=== PATIENT | male | born 1980 | race Caucasian/White ===

== ENCOUNTER 2022-10-22 16:47 | Emergency (ER) | payer BC ==
[~2022-10-22] VITALS: Ht 175.3 cm; Wt 99.5 kg
[2022-10-22 17:59] LABS: CLARITY,URINE CLEAR (Clear); COLOR,URINE YELLOW (Yellow); GLUCOSE, URINE NEGATIVE (Neg); KETONES,URINE TRACE mg/dl (Neg); LEUKOCYTE ESTERASE ,URINE NEGATIVE (Neg); NITRITES, URINE NEGATIVE (Neg); OCCULT BLOOD,URINE NEGATIVE (Neg); PH,URINE 6.5 (4.8-8.0); PROTEIN,URINE NEGATIVE (Neg); UROBILINOGEN,URINE 0.2 E.U/dL (0.2-1.0)
[2022-10-22 18:00] VITALS: BP 140/95
[2022-10-22 18:00] LABS: UA COLLECTION TYPE CLN CATCH MIDSTREAM
[2022-10-22] MEDS ORDERED: ketorolac trometh. 30mg/ml inj. IM ONE (18:00)
[2022-10-22] MEDS ORDERED: oxyCODONE/APAP 10/325mg tablet PO ONE (19:30)
== END 2022-10-22 20:09 | disposition home or self-care (01) ==
LOC: ER 16:47
DX: M54.50 Low back pain, unspecified (principal); F41.9 Anxiety disorder, unspecified; F32.9 Major depressive disorder, single episode, unspecified; Z72.89 Other problems related to lifestyle
CPT/HCPCS: 74176; 81003; 96372; 99285; J1885

== ENCOUNTER 2023-04-21 14:22 | Outpatient (CLI) | payer BC ==
[2023-04-21 15:14] LABS: BASOPHILS # (AUTO) 0.1 X10'3 (0-0.2); BASOPHILS % (AUTO) 0.8 % (0-1); EOSINOPHILS # (AUTO) 0.3 X10'3 (0-0.9); EOSINOPHILS % (AUTO) 3.4 % (0-6); HEMOGLOBIN 16.9 g/dl (14.0-17.9); LYMPHOCYTES # (AUTO) 2.2 X10'3 (1.1-4.8); LYMPHOCYTES % (AUTO) 29.1 % (21-51); MEAN CORPUSCULAR HEMOGLOBIN 29.7 PG (27.0-31.0); MEAN CORPUSCULAR HGB CONC 33.7 g/dL (33.0-36.5); MEAN PLATELET VOLUME 8.3 FL (7.4-10.4); MONOCYTES # (AUTO) 0.7 X10'3 (0-0.9); MONOCYTES % (AUTO) 8.7 % (2-12); NEUTROPHILS # (AUTO) 4.4 X10'3 (1.8-7.7); PLATELET COUNT 270 X10'3 (140-440); RED BLOOD COUNT 5.68 X10'6 (4.70-6.10); RED CELL DISTRIBUTION WIDTH 15.6 % (11.5-14.5); WHITE BLOOD COUNT 7.5 X10'3 (4.5-11.0)
[2023-04-21 15:23] LABS: ALANINE AMINOTRANSFERASE 123 U/L (12-78); ALBUMIN 3.7 G/DL (3.4-5.0); ALKALINE PHOSPHATASE 55 IU/L (46-116); ANION GAP 8 (8-16); ASPARTATE AMINO TRANSFERASE 57 U/L (10-37); BILIRUBIN,TOTAL 0.3 MG/DL (0.1-1.0); BLOOD UREA NITROGEN 19 MG/DL (7-18); BUN/CREATININE RATIO 15.7 (10.0-20.0); CALCIUM 8.9 MG/DL (8.5-10.1); CHLORIDE 102 MMOL/L (99-107); CHOLESTEROL 199 MG/DL (0-200); CREATININE 1.21 MG/DL (0.60-1.10); GLUCOSE 94 MG/DL (70-104); HDL CHOLESTEROL 25 MG/DL (35-60); LDL CHOLESTEROL 148 MG/DL (50-100); POTASSIUM 4.2 MMOL/L (3.5-5.1); SODIUM 137 MMOL/L (135-145); TOTAL CARBON DIOXIDE 27.2 MMOL/L (24-32); TOTAL PROTEIN 7.5 G/DL (6.4-8.2); TRIGLYCERIDES 124 MG/DL (20-135); eGFR 66 ML/MIN
== END 2023-04-21 23:59 | disposition home or self-care (01) ==
LOC: LAB 14:22
PROVIDERS: ATTEND Physician Assistant
DX: R53.83 Other fatigue (principal); Z79.890 Hormone replacement therapy
CPT/HCPCS: 36415; 80053; 80061; 84402; 84403; 85025

== ENCOUNTER 2023-04-24 08:47 | Outpatient (CLI) | payer BC | END 2023-04-24 23:59 | disposition home or self-care (01) | LOC: RAD 08:47 | PROVIDERS: ATTEND Physician Assistant | DX: M25.812 Other specified joint disorders, left shoulder (principal); M62.89 Other specified disorders of muscle; M25.512 Pain in left shoulder; G89.29 Other chronic pain | CPT/HCPCS: 73221 ==

== ENCOUNTER 2023-10-30 08:53 | Day surgery (SDC) | payer BC ==
[2023-10-24 15:43] LABS: BASOPHILS % (AUTO) 0.4 % (0-1); EOSINOPHILS # (AUTO) 0.2 X10'3 (0-0.9); LYMPHOCYTES # (AUTO) 1.9 X10'3 (1.1-4.8); MEAN CORPUSCULAR HGB CONC 33.5 g/dL (33.0-36.5); MONOCYTES # (AUTO) 0.8 X10'3 (0-0.9)
[2023-10-24 15:45] LABS: EOSINOPHILS % (AUTO) 1.9 % (0-6); LYMPHOCYTES % (AUTO) 21.4 % (21-51); MEAN CORPUSCULAR HEMOGLOBIN 30.7 PG (27.0-31.0); MEAN CORPUSCULAR VOLUME 91.8 FL (78-98); MEAN PLATELET VOLUME 8.5 FL (7.4-10.4); MONOCYTES % (AUTO) 9.1 % (2-12); NEUTROPHILS # (AUTO) 6.1 X10'3 (1.8-7.7); NEUTROPHILS % (AUTO) 67.2 % (42-75); PRE OP HEMATOCRIT 55.9 % (42.0-52.0); PRE OP PLATELET COUNT 245 X10'3 (140-440); PRE OP WHITE BLOOD COUNT 9.1 10'3 (4.8-10.8); RED BLOOD COUNT 6.09 X10'6 (4.70-6.10); RED CELL DISTRIBUTION WIDTH 15.5 % (11.5-14.5)
[2023-10-24 15:47] LABS: PRE OP HEMOGLOBIN 18.7 g/dL (14.0-17.9)
[2023-10-24 16:27] LABS: CHLORIDE 103 MMOL/L (99-107); PRE OP ANION GAP 5 (8-16); PRE OP POTASSIUM 3.8 MMOL/L (3.4-5.1); PRE OP SODIUM 139 MMOL/L (135-145); TOTAL CARBON DIOXIDE 30.8 MMOL/L (24-32)
[2023-10-24 17:02] LABS: ALKALINE PHOSPHATASE 53 IU/L (46-116); BLOOD UREA NITROGEN 19 MG/DL (7-18); BUN/CREATININE RATIO 16.5 (10.0-20.0); CREATININE 1.15 MG/DL (0.60-1.10); PRE OP ALT 57 U/L (30-65); PRE OP AST 39 U/L (10-37); PRE OP BILIRUB, TOTAL 0.5 MG/DL (0.0-1.0); PRE OP GLUCOSE 81 MG/DL (70-104); eGFR 70 ML/MIN
[~2023-10-30] VITALS: Ht 175.3 cm; Wt 98.9 kg
[2023-10-30] VITALS (11 sets, daily range): BP systolic 132–169; BP diastolic 42–96; PULSE 76–88; RESP 12–19; TEMP 98.2; O2SAT 90–97
[2023-10-30] MEDS: cefazolin 2gm/D5W 100mL 100 ML IV ONE (05:30)
[~2023-10-30 08:53] MED LIST: ALPR0.5T8 PO; ESCI20TA39 PO; TEST200V33 IM
[2023-10-30] MEDS: famotidine 20mg tablet PO ONE (09:27)
[2023-10-30] MEDS: ringers solution, lacted 1,000 ML IV SCH (09:27)
[2023-10-30] MEDS ORDERED: BUPIVAcaine 0.5% inj/PF 30 ML ONE (09:38)
[2023-10-30] MEDS ORDERED: triamcinolone acetonide 40mg/ml inj ONE (09:38)
[2023-10-30] MEDS ORDERED: LIDOcaine 1% w/EPI 1:100,000 inj. MDV 50 ML VIAL ONE (09:38)
[2023-10-30] MEDS ORDERED: epiNEPHrine 1 mg/ml 30ml MDV ONE (09:38)
[2023-10-30] MEDS ORDERED: fentaNYL/PF 50MCG/1 ML 2ML syringe ONE ×2 (09:49→11:36)
[2023-10-30] MEDS ORDERED: LIDOcaine 2% (20mg/ml) 5ml vial ONE (09:49)
[2023-10-30] MEDS ORDERED: midazolam 1 mg/ML 2ml injection ONE (09:49)
[2023-10-30] MEDS ORDERED: propofol inj 20 ML IV ONE (09:49)
[2023-10-30] MEDS ORDERED: dexamethasone sod phosphate 10mg/ml inj ONE (09:58)
[2023-10-30] MEDS ORDERED: sevoflurane 250ml liquid IH ONE (09:58)
[2023-10-30] MEDS ORDERED: ROPIVAcaine 0.5% (5mg/ml) 30ml vial ONE (10:14)
[2023-10-30] MEDS ORDERED: acetaminophen 1,000mg/100ml IV 100 ML IV ONE (10:24)
[2023-10-30] MEDS: LIDOcaine 1.5% w/epinephrine 1:200,000 5ml ampul IJ ONE (10:40)
[2023-10-30] MEDS: epiNEPHrine 1 mg/ml inj IR ONE (10:40)
[2023-10-30] MEDS ORDERED: ondansetron/PF 4mg/2ml inj ONE (10:41)
[2023-10-30] MEDS ORDERED: morphine 4 MG/ML inj SYRINge IV PRN (10:55)
[2023-10-30] MEDS ORDERED: morphine 2 MG/ML inj. syringe IV PRN (10:55)
[2023-10-30] MEDS ORDERED: hydrALAZINE 20mg/ml inj. IV PRN (10:55)
[2023-10-30] MEDS ORDERED: ringers solution, lacted 1,000 ML IV SCH (10:55)
[2023-10-30] MEDS ORDERED: fentaNYL/PF 50MCG/1 ML 2ML syringe IV PRN ×2 (10:55)
[2023-10-30] MEDS ORDERED: enalaprilat dihydrate 2.5mg/2ml vial IV PRN (10:55)
[2023-10-30] MEDS ORDERED: ondansetron/PF 4mg/2ml inj IV PRN (10:55)
[2023-10-30] MEDS: triamcinolone acetonide 40mg/ml inj IJ ONE (11:25)
[2023-10-30] MEDS: ROPIVAcaine 0.5% (5mg/ml) 30ml vial IJ ONE (11:25)
[2023-10-30 12:53] LABS: ABG BASE EXCESS -1.4 mmol/L (-2.0-2.0); ABG HCO3 24.1 mmol/L (22.0-26.0); ABG OXYGEN SATURATION 90.2 % (94-97); ABG PCO2 (T) 41.7 mmHg (35.0-48.0); ABG PH (T) 7.374 (7.340-7.440); ALLEN'S TEST POSITIVE; FCOHb 0.7 % (0.0-3.9); FHHb 9.7 % (0.0-5.0); FLOW 6 L/min; FMetHb 0.3 % (0.0-1.5); FO2Hb 89.3 % (94-97); MODE MASK - SIMPLE; TOTAL HEMOGLOBIN 12.3 G/dl (14.0-17.9)
[2023-10-30] MEDS: ondansetron 4mg rapidly disintigrating tab PO ONE (13:50)
== END 2023-10-30 13:55 | disposition home or self-care (01) ==
LOC: PAS 08:53
PROVIDERS: ATTEND Orthopaedic Surgery
DX: S43.432A Superior glenoid labrum lesion of left shoulder, initial encounter (principal); M75.42 Impingement syndrome of left shoulder; M19.012 Primary osteoarthritis, left shoulder; M75.112 Incomplete rotator cuff tear or rupture of left shoulder, not specified as traumatic; M75.32 Calcific tendinitis of left shoulder; M94.212 Chondromalacia, left shoulder; I10 Essential (primary) hypertension; E66.9 Obesity, unspecified; F41.9 Anxiety disorder, unspecified; F32.A Depression, unspecified; G47.33 Obstructive sleep apnea (adult) (pediatric); Z79.890 Hormone replacement therapy; Z79.899 Other long term (current) drug therapy; Z68.32 Body mass index [BMI] 32.0-32.9, adult; X58.XXXA Exposure to other specified factors, initial encounter; Y93.89 Activity, other specified; Y92.89 Other specified places as the place of occurrence of the external cause; Y99.8 Other external cause status
CPT/HCPCS: 29823; 29824; 29826; 36415; 36600; 64450; 80053; 82803; 82948; 85018; 85025; 93005; J0131; J0171; J0690; J1100; J2250; J2405; J2704; J2795; J3010; J3301; J3490; J7030; J7120; S0020; Z7506; Z7508; Z7512; A4215; A4565; A4618; A6253; A6449

== ENCOUNTER 2023-12-11 11:04 | Outpatient (CLI) | payer BC ==
[2023-12-11 11:53] LABS: BILIRUBIN,URINE NEGATIVE (Neg); CLARITY,URINE CLEAR (Clear); COLOR,URINE YELLOW (Yellow); GLUCOSE, URINE NEGATIVE (Neg); KETONES,URINE NEGATIVE (Neg); LEUKOCYTE ESTERASE ,URINE NEGATIVE (Neg); NITRITES, URINE NEGATIVE (Neg); OCCULT BLOOD,URINE NEGATIVE (Neg); PROTEIN,URINE NEGATIVE (Neg); UROBILINOGEN,URINE 0.2 E.U/dL (0.2-1.0)
[2023-12-11 11:56] LABS: UA COLLECTION TYPE NON-SPECIFIED
[2023-12-11 11:57] LABS: BASOPHILS % (AUTO) 0.6 % (0-1); EOSINOPHILS # (AUTO) 0.1 X10'3 (0-0.9); EOSINOPHILS % (AUTO) 1.4 % (0-6); HEMATOCRIT 53.8 % (42.0-52.0); LYMPHOCYTES # (AUTO) 1.7 X10'3 (1.1-4.8); LYMPHOCYTES % (AUTO) 24.1 % (21-51); MEAN CORPUSCULAR HGB CONC 33.9 g/dL (33.0-36.5); MEAN CORPUSCULAR VOLUME 91.4 FL (78-98); MEAN PLATELET VOLUME 8.2 FL (7.4-10.4); MONOCYTES # (AUTO) 0.6 X10'3 (0-0.9); MONOCYTES % (AUTO) 8.9 % (2-12); NEUTROPHILS # (AUTO) 4.6 X10'3 (1.8-7.7); PLATELET COUNT 197 X10'3 (140-440); RED BLOOD COUNT 5.89 X10'6 (4.70-6.10); RED CELL DISTRIBUTION WIDTH 15.2 % (11.5-14.5); WHITE BLOOD COUNT 7.1 X10'3 (4.5-11.0)
[2023-12-11 12:02] LABS: HEMOGLOBIN 18.2 g/dl (14.0-17.9)
[2023-12-11 12:11] LABS: % IRON SATURATION 31 % (11-46); IRON 104 UG/DL (53-167); TOTAL IRON BINDING CAPACITY 335 UG/DL (259-388)
[2023-12-11 12:43] LABS: ANION GAP 6 (8-16); BILIRUBIN,TOTAL 0.5 MG/DL (0.1-1.0); BLOOD UREA NITROGEN 21 MG/DL (7-18); BUN/CREATININE RATIO 18.9 (10.0-20.0); C-REACTIVE PROTEIN 0.22 MG/DL (0.0-0.5); CALCIUM 8.5 MG/DL (8.5-10.1); CHLORIDE 104 MMOL/L (99-107); CREATININE 1.11 MG/DL (0.60-1.10); FERRITIN 176 NG/ML (26-388); GLUCOSE 96 MG/DL (70-104); POTASSIUM 4.4 MMOL/L (3.5-5.1); PRO BRAIN NATRIURETIC PEPTIDE < 30 PG/ML (0-125); SODIUM 137 MMOL/L (135-145); TOTAL CARBON DIOXIDE 27.5 MMOL/L (24-32); TOTAL PROTEIN 7.8 G/DL (6.4-8.2); URIC ACID 6.1 MG/DL (3.5-7.2); eGFR 73 ML/MIN
[2023-12-11 12:44] LABS: ALANINE AMINOTRANSFERASE 102 U/L (12-78); ALBUMIN 3.9 G/DL (3.4-5.0); ALKALINE PHOSPHATASE 63 IU/L (46-116); ASPARTATE AMINO TRANSFERASE 63 U/L (10-37); FREE T4 (FREE THYROXINE) 0.99 NG/DL (0.73-1.40); THYROID STIMULATING HORMONE 0.88 ulU/ml (0.34-4.50)
[2023-12-11 13:12] LABS: LACTATE DEHYDROGENASE 161 U/L (85-227)
[2023-12-11 14:14] LABS: RHEUM FACTOR QUAL REFLEX TITER NEGATIVE (Neg)
[2023-12-12 12:23] LABS: ANTINUCLEAR ANTIBODIES Negative (Negative)
[2023-12-12 19:00] LABS: HAPTOGLOBIN 108 mg/dL (23-355); TRANSFERRIN 286 mg/dL (177-329)
[2023-12-13 06:10] LABS: AFP,SERUM, TUMOR MARKER 2.3 ng/mL (0.0-6.9); HBSAG SCREEN Negative (Negative); HEP A AB, IGM Negative (Negative); HEP B CORE AB, IGM Negative (Negative); TESTOSTERONE, SERUM >1500 ng/dL (264-916)
[2023-12-13 06:13] LABS: A/G RATIO 1.2 (0.7-1.7); ALBUMIN 3.9 g/dL (2.9-4.4); ALPHA-1-GLOBULIN 0.2 g/dL (0.0-0.4); ALPHA-2-GLOBULIN 0.6 g/dL (0.4-1.0); BETA GLOBULIN 1.1 g/dL (0.7-1.3); GAMMA GLOBULIN 1.4 g/dL (0.4-1.8); GLOBULIN, TOTAL 3.3 g/dL (2.2-3.9); M-SPIKE Not Observed g/dL (Not Observed); PROTEIN, TOTAL, SERUM 7.2 g/dL (6.0-8.5)
[2023-12-13 11:30] LABS: HEPATITIS C VIRUS ANTIBODY Non Reactive (Non Reactive)
[2023-12-13 16:54] LABS: ERYTHROPOIETIN, SERUM 11.2 mIU/mL (2.6-18.5)
[2023-12-13 23:09] LABS: BETA-2 MICROGLOBULIN, SERUM 1.3 mg/L (0.6-2.4)
[2023-12-15 09:58] LABS: ALBUMIN, UR Note: % (.); PROTEIN,TOTAL,URINE 6.1 mg/dL (Not Estab.)
== END 2023-12-11 23:59 | disposition home or self-care (01) ==
LOC: LAB 11:04
PROVIDERS: ATTEND Internal Medicine Hematology & Oncology
DX: D75.1 Secondary polycythemia (principal); R79.89 Other specified abnormal findings of blood chemistry; R53.83 Other fatigue; R06.02 Shortness of breath; Z74.09 Other reduced mobility; Z79.899 Other long term (current) drug therapy
CPT/HCPCS: 36415; 80053; 80074; 81003; 81256; 81479; 82103; 82232; 82607; 82668; 82728; 83010; 83540; 83550; 83615; 83880; 83891; 83909; 84155; 84156; 84165; 84166; 84402; 84403; 84439; 84443; 84466; 84550; 85025; 85651; 86038; 86140; 86430

== ENCOUNTER 2023-12-13 09:04 | Emergency (ER) | payer BC ==
[~2023-12-13] VITALS: Ht 175.3 cm; Wt 96.9 kg
[2023-12-13 09:18] VITALS: BP 144/83; PULSE 87; RESP 16; TEMP 97.6; O2SAT 96
[2023-12-13] MEDS ORDERED: ketorolac trometh. 30mg/ml inj. IM ONE (09:30)
[2023-12-13] MEDS ORDERED: ketorolac trometh inj. 60 MG/2 ML VIAL IM ONE (09:30)
[2023-12-13] MEDS: ketorolac trometh. 30mg/ml inj. IM ONE (09:56)
== END 2023-12-13 10:14 | disposition home or self-care (01) ==
LOC: ER 09:05
DX: M25.512 Pain in left shoulder (principal); F31.9 Bipolar disorder, unspecified; F41.9 Anxiety disorder, unspecified; Z72.89 Other problems related to lifestyle; Z79.899 Other long term (current) drug therapy
CPT/HCPCS: 96372; 99283; J1885

== ENCOUNTER 2023-12-14 08:46 | Outpatient (CLI) | payer BC | END 2023-12-14 23:59 | disposition home or self-care (01) | LOC: RAD 08:46 | PROVIDERS: ATTEND Internal Medicine Hematology & Oncology | DX: K76.0 Fatty (change of) liver, not elsewhere classified (principal); R16.0 Hepatomegaly, not elsewhere classified; D58.2 Other hemoglobinopathies; K82.4 Cholesterolosis of gallbladder; N28.89 Other specified disorders of kidney and ureter | CPT/HCPCS: 76700 ==

== ENCOUNTER 2023-12-15 16:48 | Emergency (ER) | payer BC ==
[~2023-12-15] VITALS: Ht 175.3 cm; Wt 98.3 kg
[2023-12-15 16:49] VITALS: TEMP 98.7
[2023-12-15] MEDS ORDERED: iohexol 300mg/ml 100ml inj. ONE (18:18)
[2023-12-15 18:22] LABS: MEAN CORPUSCULAR HGB CONC 33.9 g/dL (33.0-36.5); MEAN PLATELET VOLUME 8.6 FL (7.4-10.4); WHITE BLOOD COUNT 6.9 X10'3 (4.5-11.0)
[2023-12-15 18:24] LABS: BASOPHILS % (AUTO) 0.4 % (0-1); EOSINOPHILS # (AUTO) 0.1 X10'3 (0-0.9); EOSINOPHILS % (AUTO) 1.3 % (0-6); HEMATOCRIT 49.8 % (42.0-52.0); HEMOGLOBIN 16.8 g/dl (14.0-17.9); LYMPHOCYTES # (AUTO) 1.2 X10'3 (1.1-4.8); LYMPHOCYTES % (AUTO) 17.5 % (21-51); MEAN CORPUSCULAR VOLUME 91.7 FL (78-98); MONOCYTES # (AUTO) 0.3 X10'3 (0-0.9); MONOCYTES % (AUTO) 4.2 % (2-12); NEUTROPHILS # (AUTO) 5.3 X10'3 (1.8-7.7); NEUTROPHILS % (AUTO) 76.6 % (42-75); PLATELET COUNT 211 X10'3 (140-440); RED BLOOD COUNT 5.43 X10'6 (4.70-6.10); RED CELL DISTRIBUTION WIDTH 15.1 % (11.5-14.5)
[2023-12-15] MEDS: normal saline 1000ml 1,000 ML IV ONE (18:26)
[2023-12-15] MEDS: acetaminophen 325mg tablet PO ONE (18:27)
[2023-12-15 18:49] LABS: PROTHROMBIN TIME 10.3 SECONDS (9.0-12.0)
[2023-12-15 18:58] LABS: ALANINE AMINOTRANSFERASE 78 U/L (12-78); ALBUMIN 3.6 G/DL (3.4-5.0); ALBUMIN/GLOBULIN RATIO 0.9 (1.1-1.5); ALKALINE PHOSPHATASE 61 IU/L (46-116); ANION GAP 8 (8-16); ASPARTATE AMINO TRANSFERASE 46 U/L (10-37); BILIRUBIN,TOTAL 0.3 MG/DL (0.1-1.0); BLOOD UREA NITROGEN 23 MG/DL (7-18); CALCIUM 8.6 MG/DL (8.5-10.1); CHLORIDE 105 MMOL/L (99-107); CREATININE 1.15 MG/DL (0.60-1.10); GLUCOSE 98 MG/DL (70-104); POTASSIUM 4.1 MMOL/L (3.5-5.1); SODIUM 141 MMOL/L (135-145); TOTAL CARBON DIOXIDE 27.6 MMOL/L (24-32); TOTAL PROTEIN 7.5 G/DL (6.4-8.2); eCRCL 85 ML/MIN; eGFR 70 ML/MIN
[2023-12-15 20:39] VITALS: BP 140/87; PULSE 80; RESP 20; O2SAT 94
== END 2023-12-15 20:40 | disposition home or self-care (01) ==
LOC: ER 16:49
DX: G89.18 Other acute postprocedural pain (principal); F41.9 Anxiety disorder, unspecified; F32.A Depression, unspecified; Z72.89 Other problems related to lifestyle; Z79.899 Other long term (current) drug therapy; Z98.890 Other specified postprocedural states
CPT/HCPCS: 36415; 73201; 80053; 85025; 85610; 93971; 96360; 99285; A6258; J3490; J7030; Q9967

== ENCOUNTER 2024-01-08 13:28 | Outpatient (CLI) | payer BC | END 2024-01-08 23:59 | disposition home or self-care (01) | LOC: MRI 13:28 | PROVIDERS: ATTEND Orthopaedic Surgery | DX: M19.012 Primary osteoarthritis, left shoulder (principal); M24.112 Other articular cartilage disorders, left shoulder; M75.112 Incomplete rotator cuff tear or rupture of left shoulder, not specified as traumatic; M75.42 Impingement syndrome of left shoulder; M75.52 Bursitis of left shoulder; M94.212 Chondromalacia, left shoulder; M25.512 Pain in left shoulder | CPT/HCPCS: 73221 ==

== ENCOUNTER 2024-09-12 10:35 | Emergency (ER) | payer BC ==
[~2024-09-12] VITALS: Ht 175.3 cm; Wt 107.3 kg
[2024-09-12 11:03] VITALS: BP 183/88; PULSE 81; TEMP 98.8; O2SAT 97
[2024-09-12 14:44] VITALS: RESP 18
[2024-09-12] MEDS: dexamethasone sod phosphate 10mg/ml inj IM STA (14:44)
[2024-09-12] MEDS: ketorolac trometh 30MG/ML vial 30 MG/ML VIAL IM STA (14:44)
[2024-09-12 14:47] LABS: BASOPHILS % (AUTO) 0.4 % (0-1); EOSINOPHILS # (AUTO) 0.2 X10'3 (0-0.9); HEMATOCRIT 53.7 % (42.0-52.0); LYMPHOCYTES # (AUTO) 2.3 X10'3 (1.1-4.8); LYMPHOCYTES % (AUTO) 23.9 % (21-51); MEAN CORPUSCULAR HEMOGLOBIN 32.2 PG (27.0-31.0); MEAN CORPUSCULAR HGB CONC 34.8 g/dL (33.0-36.5); MEAN CORPUSCULAR VOLUME 92.6 FL (78-98); MONOCYTES # (AUTO) 0.8 X10'3 (0-0.9); MONOCYTES % (AUTO) 8.2 % (2-12); NEUTROPHILS # (AUTO) 6.3 X10'3 (1.8-7.7); NEUTROPHILS % (AUTO) 65.5 % (42-75); PLATELET COUNT 245 X10'3 (140-440); RED CELL DISTRIBUTION WIDTH 15.6 % (11.5-14.5); WHITE BLOOD COUNT 9.6 X10'3 (4.5-11.0)
[2024-09-12 15:01] LABS: HEMOGLOBIN 18.7 g/dl (14.0-17.9)
[2024-09-12 15:03] LABS: ALANINE AMINOTRANSFERASE 155 U/L (12-78); ALKALINE PHOSPHATASE 58 IU/L (46-116); ANION GAP 9 (8-16); ASPARTATE AMINO TRANSFERASE 78 U/L (10-37); BILIRUBIN,TOTAL 0.5 MG/DL (0.1-1.0); BLOOD UREA NITROGEN 13 MG/DL (7-18); BUN/CREATININE RATIO 11.6 (10.0-20.0); CALCIUM 9.2 MG/DL (8.5-10.1); CHLORIDE 101 MMOL/L (99-107); CREATININE 1.12 MG/DL (0.60-1.10); GLUCOSE 84 MG/DL (70-104); POTASSIUM 4.4 MMOL/L (3.5-5.1); SODIUM 136 MMOL/L (135-145); TOTAL CARBON DIOXIDE 25.6 MMOL/L (24-32); TOTAL PROTEIN 7.9 G/DL (6.4-8.2); eCRCL 86 ML/MIN; eGFR 72 ML/MIN
[2024-09-12] MEDS ORDERED: PRED20TA PO (15:45)
== END 2024-09-12 15:52 | disposition home or self-care (01) ==
LOC: ER 10:36
DX: M54.50 Low back pain, unspecified (principal); F32.A Depression, unspecified; F41.9 Anxiety disorder, unspecified
CPT/HCPCS: 36415; 72110; 80053; 85025; 96372; 99284; J1100; J1885

== ENCOUNTER → 2024-11-05 | Outpatient (CLI) | payer BC ==
[2024-11-05 13:41] LABS: BASOPHILS % (AUTO) 0.3 % (0-1); EOSINOPHILS # (AUTO) 0.1 X10'3 (0-0.9); EOSINOPHILS % (AUTO) 1.4 % (0-6); HEMATOCRIT 54.5 % (42.0-52.0); LYMPHOCYTES # (AUTO) 1.7 X10'3 (1.1-4.8); LYMPHOCYTES % (AUTO) 17.4 % (21-51); MEAN CORPUSCULAR HEMOGLOBIN 31.9 PG (27.0-31.0); MEAN CORPUSCULAR HGB CONC 34.4 g/dL (33.0-36.5); MEAN CORPUSCULAR VOLUME 92.7 FL (78-98); MEAN PLATELET VOLUME 8.5 FL (7.4-10.4); MONOCYTES # (AUTO) 0.7 X10'3 (0-0.9); MONOCYTES % (AUTO) 7.4 % (2-12); NEUTROPHILS # (AUTO) 7.1 X10'3 (1.8-7.7); NEUTROPHILS % (AUTO) 73.5 % (42-75); PLATELET COUNT 200 X10'3 (140-440); RED BLOOD COUNT 5.88 X10'6 (4.70-6.10); RED CELL DISTRIBUTION WIDTH 13.8 % (11.5-14.5); WHITE BLOOD COUNT 9.6 X10'3 (4.5-11.0)
[2024-11-05 13:55] LABS: HEMOGLOBIN 18.7 g/dl (14.0-17.9)
[2024-11-05 13:59] LABS: ALANINE AMINOTRANSFERASE 59 U/L (12-78); ALBUMIN 4.1 G/DL (3.4-5.0); ALBUMIN/GLOBULIN RATIO 1.1 (1.1-1.5); ALKALINE PHOSPHATASE 56 IU/L (46-116); ANION GAP 7 (8-16); ASPARTATE AMINO TRANSFERASE 39 U/L (10-37); BILIRUBIN,TOTAL 0.5 MG/DL (0.1-1.0); BLOOD UREA NITROGEN 28 MG/DL (7-18); BUN/CREATININE RATIO 19.4 (10.0-20.0); CALCIUM 8.7 MG/DL (8.5-10.1); CHLORIDE 103 MMOL/L (99-107); CREATININE 1.44 MG/DL (0.60-1.10); GLUCOSE 75 MG/DL (70-104); POTASSIUM 4.6 MMOL/L (3.5-5.1); SODIUM 137 MMOL/L (135-145); TOTAL CARBON DIOXIDE 26.6 MMOL/L (24-32); eGFR 54 ML/MIN
[2024-11-07 11:23] LABS: ESTRADIOL 87.1 pg/mL (7.6-42.6); FSH, SERUM <0.3 mIU/mL (1.5-12.4); LUTEINIZING HORMONE <0.3 mIU/mL (1.7-8.6); PSA, ULTRASENSITIVE W/O SERIAL 0.507 ng/mL (0.000-4.000); TESTOSTERONE, SERUM 921 ng/dL (264-916)
[2024-11-13 05:42] LABS: TESTOSTERONE, FREE, DIRECT 32.8 pg/mL (6.8-21.5)
== END | disposition home or self-care (01) ==
LOC: MRI 13:04
PROVIDERS: ATTEND Nurse Practitioner Family
DX: M51.379 Other intervertebral disc degeneration, lumbosacral region without mention of lumbar back pain or lower extremity pain (principal); M47.816 Spondylosis without myelopathy or radiculopathy, lumbar region; M51.24 Other intervertebral disc displacement, thoracic region; R29.898 Other symptoms and signs involving the musculoskeletal system; E29.1 Testicular hypofunction; R35.1 Nocturia; M48.07 Spinal stenosis, lumbosacral region
CPT/HCPCS: 36415; 72148; 73721; 80053; 82670; 83001; 83002; 84153; 84402; 84403; 85025

== ENCOUNTER 2024-11-28 10:40 | Outpatient (CLI) | payer BC | END 2024-11-28 23:59 | disposition home or self-care (01) | LOC: RAD 10:40 | PROVIDERS: ATTEND Nurse Practitioner Family | DX: J32.4 Chronic pansinusitis (principal); G47.33 Obstructive sleep apnea (adult) (pediatric); J35.2 Hypertrophy of adenoids | CPT/HCPCS: 70486 ==

== ENCOUNTER 2025-01-15 10:41 | Outpatient (CLI) | payer BC ==
[2025-01-15 11:37] LABS: BILIRUBIN,URINE NEGATIVE (Neg); CLARITY,URINE CLEAR (Clear); COLOR,URINE YELLOW (Yellow); GLUCOSE, URINE NEGATIVE (Neg); KETONES,URINE NEGATIVE (Neg); LEUKOCYTE ESTERASE ,URINE NEGATIVE (Neg); NITRITES, URINE NEGATIVE (Neg); OCCULT BLOOD,URINE NEGATIVE (Neg); PROTEIN,URINE NEGATIVE (Neg); UROBILINOGEN,URINE 0.2 E.U/dL (0.2-1.0)
[2025-01-15 11:38] LABS: UA COLLECTION TYPE CLN CATCH MIDSTREAM
[2025-01-15 11:42] LABS: BASOPHILS % (AUTO) 0.5 % (0-1); EOSINOPHILS # (AUTO) 0.1 X10'3 (0-0.9); EOSINOPHILS % (AUTO) 2.3 % (0-6); HEMATOCRIT 51.3 % (42.0-52.0); HEMOGLOBIN 17.4 g/dl (14.0-17.9); LYMPHOCYTES % (AUTO) 36.6 % (21-51); MEAN CORPUSCULAR HEMOGLOBIN 30.3 PG (27.0-31.0); MEAN CORPUSCULAR HGB CONC 33.8 g/dL (33.0-36.5); MEAN CORPUSCULAR VOLUME 89.5 FL (78-98); MEAN PLATELET VOLUME 8.4 FL (7.4-10.4); MONOCYTES # (AUTO) 0.4 X10'3 (0-0.9); MONOCYTES % (AUTO) 8.3 % (2-12); NEUTROPHILS # (AUTO) 2.8 X10'3 (1.8-7.7); NEUTROPHILS % (AUTO) 52.3 % (42-75); PLATELET COUNT 194 X10'3 (140-440); RED BLOOD COUNT 5.73 X10'6 (4.70-6.10); RED CELL DISTRIBUTION WIDTH 13.4 % (11.5-14.5); WHITE BLOOD COUNT 5.4 X10'3 (4.5-11.0)
[2025-01-15 12:02] LABS: ALANINE AMINOTRANSFERASE 44 U/L (12-78); ALBUMIN 4.3 G/DL (3.4-5.0); ALBUMIN/GLOBULIN RATIO 1.2 (1.1-1.5); ALKALINE PHOSPHATASE 77 IU/L (46-116); ANION GAP 7 (8-16); ASPARTATE AMINO TRANSFERASE 27 U/L (10-37); BILIRUBIN,TOTAL 0.6 MG/DL (0.1-1.0); BLOOD UREA NITROGEN 14 MG/DL (7-18); BUN/CREATININE RATIO 14.1 (10.0-20.0); CHLORIDE 106 MMOL/L (99-107); CHOL/HDL RATIO 5.7 (0.00-4.99); CHOLESTEROL 267 MG/DL (0-200); CREATININE 0.99 MG/DL (0.60-1.10); FREE T4 (FREE THYROXINE) 0.66 NG/DL (0.73-1.40); GLUCOSE 96 MG/DL (70-104); HDL CHOLESTEROL 47 MG/DL (35-60); LDL CHOLESTEROL 169 MG/DL (50-100); POTASSIUM 4.1 MMOL/L (3.5-5.1); SODIUM 141 MMOL/L (135-145); THYROID STIMULATING HORMONE 0.71 ulU/ml (0.34-4.50); TOTAL PROTEIN 7.8 G/DL (6.4-8.2); TRIGLYCERIDES 160 MG/DL (20-135); eGFR 83 ML/MIN
[2025-01-16 14:02] LABS: TESTOSTERONE, SERUM 130 ng/dL (264-916)
== END 2025-01-15 23:59 | disposition home or self-care (01) ==
LOC: LAB 10:41
PROVIDERS: ATTEND Nurse Practitioner Family
DX: Z00.01 Encounter for general adult medical examination with abnormal findings (principal); M54.50 Low back pain, unspecified; F41.9 Anxiety disorder, unspecified; R03.0 Elevated blood-pressure reading, without diagnosis of hypertension; G89.29 Other chronic pain; R53.83 Other fatigue; E83.110 Hereditary hemochromatosis
CPT/HCPCS: 36415; 80053; 80061; 81003; 84402; 84403; 84439; 84443; 85025

== ENCOUNTER 2025-01-27 08:56 | Outpatient (CLI) | payer BC ==
[2025-01-27 09:44] LABS: BASOPHILS % (AUTO) 0.6 % (0-1); EOSINOPHILS # (AUTO) 0.2 X10'3 (0-0.9); EOSINOPHILS % (AUTO) 5.2 % (0-6); HEMATOCRIT 51.3 % (42.0-52.0); HEMOGLOBIN 17.2 g/dl (14.0-17.9); LYMPHOCYTES # (AUTO) 1.4 X10'3 (1.1-4.8); LYMPHOCYTES % (AUTO) 34.1 % (21-51); MEAN CORPUSCULAR HEMOGLOBIN 30.4 PG (27.0-31.0); MEAN CORPUSCULAR HGB CONC 33.5 g/dL (33.0-36.5); MEAN CORPUSCULAR VOLUME 90.8 FL (78-98); MEAN PLATELET VOLUME 8.6 FL (7.4-10.4); MONOCYTES # (AUTO) 0.3 X10'3 (0-0.9); MONOCYTES % (AUTO) 6.7 % (2-12); NEUTROPHILS # (AUTO) 2.3 X10'3 (1.8-7.7); NEUTROPHILS % (AUTO) 53.4 % (42-75); PLATELET COUNT 175 X10'3 (140-440); RED BLOOD COUNT 5.65 X10'6 (4.70-6.10); RED CELL DISTRIBUTION WIDTH 13.7 % (11.5-14.5); WHITE BLOOD COUNT 4.2 X10'3 (4.5-11.0)
[2025-01-28 11:15] LABS: TESTOSTERONE, SERUM 91 ng/dL (264-916)
== END 2025-01-27 23:59 | disposition home or self-care (01) ==
LOC: LAB 08:56
PROVIDERS: ATTEND Nurse Practitioner Family
DX: Z00.01 Encounter for general adult medical examination with abnormal findings (principal); R79.89 Other specified abnormal findings of blood chemistry; D75.1 Secondary polycythemia
CPT/HCPCS: 36415; 82785; 84402; 84403; 85025; 86003

== ENCOUNTER 2025-06-27 13:28 | Outpatient (CLI) | payer BC ==
[2025-06-27 14:15] LABS: MEAN PLATELET VOLUME 8.2 FL (7.4-10.4); RED CELL DISTRIBUTION WIDTH 16.6 % (11.5-14.5)
[2025-06-27 14:17] LABS: APTT 28 SECONDS (22-32); INR 1.0 INR
[2025-06-27 14:19] LABS: CREATININE 1.10 MG/DL (0.60-1.10); TOTAL CARBON DIOXIDE 27.3 MMOL/L (24-32); eGFR 73 ML/MIN
[2025-07-01] MEDS ORDERED: CELE-148 PO (15:16)
[2025-07-01] MEDS ORDERED: DULO30CA52 PO (15:16)
== END 2025-06-27 23:59 | disposition home or self-care (01) ==
LOC: LAB 13:28
PROVIDERS: ATTEND Nurse Practitioner Family
DX: J32.0 Chronic maxillary sinusitis (principal); Z09 Encounter for follow-up examination after completed treatment for conditions other than malignant neoplasm; Z79.01 Long term (current) use of anticoagulants
CPT/HCPCS: 36415; 80053; 85025; 85610; 85730

== ENCOUNTER 2025-07-08 07:44 | Day surgery (SDC) | payer BC ==
--- NOTE | 2025-07-01 15:07 | ELECTROCARDIOGRAPH REPORT ---
[facility] Test Date: 2025-07-01 Test Time: 15:05:27 Pat Name: DEEDEE YUEN Department: [facility]-PRE-OP Patient ID: [id number] Room: Gender: M Packer Operator Automatic: RAIN : 1980 Requested By: LEXIS CROUCH Order Number: [id number] Reading MD: Dr. APOLINAR Arguelles Measurements Intervals [place] Rate: 96 P: 61 MI: 163 QRS: 41 QRSD: 92 T: 39 QT: 327 QTc: 414 Interpretive Statements Sinus rhythm ST elev, probable normal early repol pattern Electronically Signed On 07-01-2025 17:35:[address] APOLINAR Arguelles Please click the below link to view image of tracing.
[~2025-07-08] VITALS: Ht 175.3 cm; Wt 104.7 kg
[2025-07-08] VITALS (9 sets, daily range): BP systolic 115–174; BP diastolic 68–94; PULSE 75–96; RESP 10–19; TEMP 98.5; O2SAT 86–98
[2025-07-08] MEDS: ceFAZolin 2gm/dext,iso 50mL 50 ML IV ONE (05:30)
[2025-07-08] MEDS: tranexamic acid 1gm/0.7% sal. 100 ML IV ONE (05:30)
[~2025-07-08 07:44] MED LIST changes: -ALPR0.5T8 PO; +CELE-148 PO; +DULO30CA52 PO; +LIDOcaine 1% W/epiNEPHrine 1:100,000 20ml vial ONE; -TEST200V33 IM; +epiNEPHrine 1 mg/ml 30ml MDV ONE; +gelatin sponge, absorbable (Gelfoam 100) sponge TP ONE; +methylPREDNISolone acetate 80mg/ml inj**IM only ONE; +oxymetazoline 15 ML nasal spray NS ONE
[2025-07-08] MEDS: ringers solution, lacted 1,000 ML IV SCH ×2 (08:13→11:55)
[2025-07-08] MEDS: oxymetazoline 15 ML nasal spray NS ONE (08:13)
[2025-07-08] MEDS ORDERED: hydrALAZINE 20mg/ml inj. IV PRN (09:45)
[2025-07-08] MEDS ORDERED: labetalol 20mg/4ml (5mg/ml) syringe IV PRN (09:45)
[2025-07-08] MEDS ORDERED: HYDROmorphone/PF 0.2 MG/ML SYRINGE IV PRN ×2 (09:45)
[2025-07-08] MEDS ORDERED: fentaNYL/PF 50MCG/1 ML 2ML syringe IV PRN ×2 (09:45)
[2025-07-08] MEDS ORDERED: cocaine 4% topical solution 4ml bottle ONE (10:14)
[2025-07-08] MEDS ORDERED: propofol inj 20 ML IV ONE (10:30)
[2025-07-08] MEDS ORDERED: fentaNYL/PF 50MCG/1 ML 2ML syringe ONE (10:30)
[2025-07-08] MEDS ORDERED: midazolam 1 mg/ML 2ml injection ONE (10:30)
[2025-07-08] MEDS ORDERED: ondansetron/PF 4mg/2ml inj ONE (11:29)
[2025-07-08] MEDS ORDERED: dexamethasone sod phosphate 4mg/ml inj. ONE (11:30)
[2025-07-08] MEDS: ondansetron/PF 4mg/2ml inj IV PRN (12:09)
--- NOTE | 2025-07-08 12:09 | OPERATIVE REPORT ---
DATE OF SURGERY: 07/08/2025 DICTATING PHYSICIAN: Colton Cavazos MD PREOPERATIVE DIAGNOSES: 1. Deviated nasal septum. 2. Hypertrophic right inferior turbinate. 3. Hypertrophic left inferior turbinate. POSTOPERATIVE DIAGNOSES: 1. Deviated nasal septum. 2. Hypertrophic right inferior turbinate. 3. Hypertrophic left inferior turbinate. PROCEDURES: 1. Septoplasty. 2. Submucous resection of right inferior turbinate. 3. Submucous resection of left inferior turbinate. SURGEON: Colton Cavazos MD ANESTHESIA: General laryngeal mask, Dr. Saxena. HISTORY: The patient is a 45-year-old male with severe bilateral nasal airway obstruction refractory to maximal medical therapy. On physical examination, the septum was widely deviated to the left, impinging upon the left inferior turbinate and bilateral inferior turbinate hypertrophy was present. On the base of the above findings, I felt that the patient had deviated nasal septum and hypertrophic inferior turbinates, and the risks, alternatives, and benefits of surgery were explained to the patient and accepted. DESCRIPTION OF PROCEDURE: The patient was brought to the operating room, given a general laryngeal mask anesthesia, and prepped and draped in the usual fashion. 1% Xylocaine with 100,000 epinephrine was infiltrated into the planned surgical site utilizing headlight and endoscope. After a suitable time elapsed for vasoconstriction, the operation was commenced with a septoplasty. A caudal incision was created on the left-hand side and a mucoperichondrial mucoperiosteal flap elevated. A [place] knife was used to transect the quadrilateral cartilage just caudal to the most caudal deflection and a mucoperichondrial mucoperiosteal flap elevated off of the contralateral side. Then, the deviated portions of quadrilateral cartilage, perpendicular plate of the ethmoid, vomer, and maxillary crest were removed. The septal leaves were coapted using fibrin glue and 4-0 chromic on a P3 needle, which yielded a midline septum. We then turned our attention to the right inferior turbinate. An anterior stab wound was made and a submucous resection of the right inferior turbinate carried out by elevating a mucoperiosteal flap off of the conchal bone and then removing the hypertrophic submucosal stroma with a turbinate blade. We then turned our attention to the left side where the same procedure was carried out (submucous resection of the left inferior turbinate), utilizing the same techniques as described above, having encountered the same findings, namely high-grade hypertrophic submucosal stroma. The anterior stab wound incision was closed with a drop of glue on each side. Then, the nasal cavities were coated with Bactroban water soluble ointment and 3 cottonoids placed in each nasal cavity for pressure hemostasis. These will be removed in the recovery room leaving the patient unpacked. The patient tolerated the procedure well to the accompaniment of minimal blood loss. Colton Cavazos MD TID: [id number] RECEIPT: [id number] /[facility] [place] cc: Alex Zepeda RN-BEHAVIOR CLINICIAN
[2025-07-08] MEDS: salt irrigation nasal spray 45 ML SPRAY NS STA (12:11)
[2025-07-08] MEDS: oxymetazoline 15 ML nasal spray NS STA (12:11)
[2025-07-08] MEDS: mupirocin 2% nasal ointment 1gm UD NS STA (12:12)
[2025-07-08] MEDS: acetaminophen 1,000mg/100ml IV 100 ML IV PRN (12:16)
[2025-07-08] MEDS: HYDROcodone/acetaminophen 5mg/325mg tablet PO ONE (12:39)
== END 2025-07-08 13:07 | disposition home or self-care (01) ==
LOC: PAS 07:44
PROVIDERS: ATTEND Otolaryngology
DX: J34.2 Deviated nasal septum (principal); J34.3 Hypertrophy of nasal turbinates; E66.9 Obesity, unspecified; F32.A Depression, unspecified; F17.200 Nicotine dependence, unspecified, uncomplicated; Z68.34 Body mass index [BMI] 34.0-34.9, adult; Z79.899 Other long term (current) drug therapy; Z98.890 Other specified postprocedural states
CPT/HCPCS: 30140; 30520; 82948; 93005; A6402; J0131; J0169; J1100; J2250; J2405; J2704; J3010; J3490; J7030; J7120; Z7506; Z7508; Z7512; A4618; A6449; A7000; J1010

== ENCOUNTER → 2025-07-11 | Outpatient (CLI) | payer BC ==
[~2025-07-11] MED LIST changes: -LIDOcaine 1% W/epiNEPHrine 1:100,000 20ml vial ONE; -epiNEPHrine 1 mg/ml 30ml MDV ONE; -gelatin sponge, absorbable (Gelfoam 100) sponge TP ONE; -methylPREDNISolone acetate 80mg/ml inj**IM only ONE; -oxymetazoline 15 ML nasal spray NS ONE
--- NOTE | 2025-07-11 16:59 | RADIOLOGY REPORT ---
PROCEDURE: MR MRI LUMBAR SPINE INDICATION: [facility] SYMPTOMS AND SIGNS INVOLVING THE MUSCULOSKELETAL SYSTEM Exam Date: 07/11/2025 03:46 PM COMPARISON: MR MRI LUMBAR SPINE on DOS: 11/05/24, DI LUMBAR SPINE COMPLTE on DOS: 09/12/24 TECHNIQUE: MRI lumbar spine without intravenous contrast. FINDINGS: Multilevel disc degeneration. Alignment: No spondylolisthesis identified. Vertebrae: No acute findings Conus: Conus medullaris terminates at the L1 level. Following axial levels detailed below: T12-L1: Disc desiccation. No spinal canal stenosis. Mild left foraminal stenosis. Facet arthrosis. L1-2: Disc desiccation. Mild right and moderate left subarticular zone stenosis. Mild bilateral foraminal stenosis. Facet arthrosis. L2-3: Disc desiccation. Disc bulge with superimposed left foraminal disc extrusion measured 4.5 mm in radial dimension. Moderate spinal canal stenosis. Severe bilateral subarticular zone stenosis with bilateral descending L3 nerve root compression. Moderate right and mild left foraminal stenosis. The facet joints are normal. L3-4: Disc desiccation. Central disc extrusion measured 3.2 mm in radial dimension with 3.15 mm of caudal extension. Moderate spinal canal stenosis. Severe bilateral subarticular zone stenosis with bilateral descending L4 nerve root compression. Moderate bilateral foraminal stenosis. Facet arthrosis. L4-5: Disc desiccation and 4.75 mm disc bulge. Mild spinal canal stenosis. Moderate bilateral subarticular zone stenosis. Moderate bilateral foraminal stenosis. Facet arthrosis. L5-S1: Disc bulge. Moderate left and severe right subarticular zone stenosis with right descending S1 nerve root compression. Moderate bilateral foraminal stenosis. Facet arthrosis. IMPRESSION: Multilevel disc degeneration. Multilevel spinal canal stenosis, most pronounced and moderate at L3-L4. Multilevel subarticular zone stenosis, most pronounced and severe at L5-S1 with right descending S1 nerve root compression. Multilevel foraminal stenosis, most pronounced and moderate at L4-L5.
== END | disposition home or self-care (01) ==
LOC: MRI02 13:37
PROVIDERS: ATTEND Nurse Practitioner Family
DX: M51.17 Intervertebral disc disorders with radiculopathy, lumbosacral region (principal); R29.898 Other symptoms and signs involving the musculoskeletal system; M48.07 Spinal stenosis, lumbosacral region; M47.27 Other spondylosis with radiculopathy, lumbosacral region
CPT/HCPCS: 72148

== ENCOUNTER 2025-08-12 12:39 | Emergency (ER) | payer BC ==
[~2025-08-12] VITALS: Ht 175.3 cm; Wt 104.5 kg
--- NOTE | 2025-08-12 12:52 | ELECTROCARDIOGRAPH REPORT ---
[facility] Test Date: 2025-08-12 Test Time: 12:44:03 Pat Name: DEEDEE YUEN Department: EMERGENCY ROOM [id number] Room: Gender: M Analyst Competitive Intelligence: MAVERICK : 1980 Requested By: DANIEL PIÑA Order Number: [id number] Reading MD: Dr. Vamshi Gil Measurements Intervals [place] Rate: 154 P: 0 MS: 0 QRS: -13 QRSD: 87 T: 35 QT: 291 QTc: 466 Interpretive Statements Atrial fibrillation Abnormal R-wave progression, late transition Baseline wander in lead(s) II,III,aVF,V2 Electronically Signed On 08-12-2025 19:08:[address] Vamshi Gil Please click the below link to view image of tracing.
[2025-08-12] MEDS: diltiazem 5mg/ml 5ml inj. IV ONE (13:09)
--- NOTE | 2025-08-12 13:16 | RADIOLOGY REPORT ---
EXAM: DI CHEST,SINGLE VIEW Indication: CP Technique: Single frontal view of the chest was obtained Comparison: None FINDINGS: Lines and Tubes: None Lungs: No focal consolidation. Pleura: No effusion. No pneumothorax. Cardiomediastinal contours: Unremarkable Bones: No acute osseous abnormality. IMPRESSION: No acute cardiopulmonary disease.
[2025-08-12 13:21] LABS: MEAN PLATELET VOLUME 8.5 FL (7.4-10.4); RED CELL DISTRIBUTION WIDTH 15.0 % (11.5-14.5)
[2025-08-12] MEDS: digoxin 250mcg/ml 2ml ampule IV ONE (13:29)
[2025-08-12] MEDS: normal saline 1000ML IV soln IVB ONE (13:36)
[2025-08-12] MEDS: magnesium sulf-water 4G/100mL 100 ML IV ONE (13:37)
[2025-08-12 13:49] LABS: CREATININE 1.25 MG/DL (0.60-1.10); PRO BRAIN NATRIURETIC PEPTIDE 83 PG/ML (0-125); TOTAL CARBON DIOXIDE 25.2 MMOL/L (24-32); eCRCL 76 ML/MIN; eGFR 63 ML/MIN
--- NOTE | 2025-08-12 13:49 | Physician Documentation ---
History of Present Illness ~ Chief Complaint: Palpitations Stated Complaint: CP IRREG HEART RATE SOB Time Seen by MD: 12:59 Primary Medical Doctor: DR. ZAMORANO Mode of Arrival: Ambulatory HPI 45-year-old male patient with a history of depression, sleep apnea and chronic back pain came to the emergency room because of palpitation and chest discomfort that has been going on since . He is not taking any antiplatelets or any anticoagulation and no history of arrhythmias in the past. He denies chest pain. He denies shortness a breath. No nausea vomiting. Medication Reconciliation Allergies: Coded Allergies: No Known Allergies (Unverified , 09/12/24) Scheduled Apixaban (Eliquis), 1 TAB PO Q12H Atorvastatin Calcium (Atorvastatin Calcium), 1 TAB PO DAILY Celecoxib (Celecoxib), 1 CAP PO DAILY, (Reported) Digoxin* (Lanoxin*), 1 TAB PO DAILY Diltiazem HCl (Diltiazem 24Hr Cd), 1 CAP PO DAILY Duloxetine HCl (Duloxetine HCl), 1 CAP PO DAILY, (Reported) Escitalopram Oxalate (Escitalopram Oxalate), 1 TAB PO DAILY, (Reported) Past Medical History Past Medical History: No Pertinent History, Anxiety, Depression Past Surgical History: no surgical history Alcohol Use: Occasionally Drug Use: none Lives with: Spouse Lives In: Home Occupation: employed Review of Systems ROS As stated above in the HPI, otherwise all systems are reviewed and negative. Physical Exam Vital Signs: Temperature: 98.6, Source: Oral, Heart Rate: 83, Respiratory Rate: 20, BP: 127/88, Pulse Oximetry: 95, Weight: 104.550 Oxygen Flow Rate: 0 Physical Exam Reviewed vital signs and he is is found to have atrial fibrillation with RVR on the monitor. Const: Not in pain or severe distress. Head: Atraumatic Eyes: Normal Conjunctiva ENT: Normal External Ears, Nose and Mouth. Moist mucous membranes Neck: Full range of motion. No meningismus Resp: Clear to auscultation bilaterally. Normal work of breathing Cardio: Irregularly irregular fast rate and rhythm, no murmurs. Skin well perfused Abd: Soft, non-tender, non-distended. Normal bowel sounds. No rebound or guarding Skin: No petechiae or rashes. Warm and dry Back: No midline or flank tenderness Ext: No cyanosis, or edema Neuro: Awake and alert Psych: Normal Mood and Affect Procedures Additional Procedures Additional Procedure Note ED MD interpretation of EKG done at 1244 hr showed Afib with RVR at 154 / min. No ischemic changes. ED MD interpretation of EKG done at 1319 hr showed Afib with CVR at 75/min and no ischemic changes. Progress Results/Orders Results/Orders Orders - DANIEL PIÑA MD Chest,Single View (08/12/25 12:49) Monitor (08/12/25 12:49) Saline Lock (08/12/25 12:49) Oxygen (08/12/25 12:49) Electrocardiogram (08/12/25 12:49) Epo Serum (08/12/25 13:27) Completed Orders - DANIEL PIÑA MD Chest,Single View (08/12/25 12:49) Cbc/Diff (08/12/25 12:49) BMP (08/12/25 12:49) PBNP (08/12/25 12:49) Electrocardiogram (08/12/25 12:49) Hs Troponin I W Calculations (08/12/25 12:49) Hs Troponin I W Calculations (08/12/25 14:49) Hs Troponin I W Calculations (08/12/25 15:49) MG (08/12/25 12:59) Diltiazem Iv (Cardizem Iv 5mg/Ml Inj.) (08/12/25 13:00) Digoxin Inj. (Lanoxin Inj.) (08/12/25 13:00) Magnesium Sulf-Water 4g/100ml (Magnesium (08/12/25 13:20) Normal Saline 1000ml (0.9% Sodium Chlori (08/12/25 13:25) Lipid Panel (08/12/25 13:49) Diltiazem Cd Capsule (Cardizem Cd Capsul (08/12/25 14:40) Apixaban Tablet (Eliquis Tablet) (08/12/25 14:40) Vital Signs 08/12/25 08/12/25 08/12/25 08/12/25 12:51 12:54 13:04 13:09 Temp 98.6 98.6 Pulse 151 134 130 Resp 29 19 B/P (MAP) 123/95 168/97 (120) 168/97 Pulse Ox 96 95 O2 Flow Rate 0 0 11/2508/12/25 08/12/25 08/12/25 13:16 13:29 13:41 14:44 Temp 98.6 98.6 Pulse 93 85 83 95 Resp 22 20 21 B/P (MAP) 140/83 (102) 127/88 (101) 125/73 (90) Pulse Ox 95 95 95 O2 Flow Rate 0 0 0 08/12/25 15:38 Temp 98.6 Pulse 96 Resp 21 B/P (MAP) 140/99 Pulse Ox 97 Laboratory Tests Test 08/12/25 12:45 08/12/25 13:54 08/12/25 15:05 White Blood Count 8.9 Red Blood Count 6.32 H Hemoglobin 19.2 *H Hematocrit 57.5 H Mean Corpuscular Volume 91.0 Mean Corpuscular Hemoglobin 30.3 Mean Corpuscular Hemoglobin Concent 33.3 Red Cell Distribution Width 15.0 H Platelet Count 234 Mean Platelet Volume 8.5 Neutrophils (%) (Auto) 62.8 Lymphocytes (%) (Auto) 25.2 Monocytes (%) (Auto) 9.8 Eosinophils (%) (Auto) 1.9 Basophils (%) (Auto) 0.3 Neutrophils # (Auto) 5.6 Lymphocytes # (Auto) 2.3 Monocytes # (Auto) 0.9 Eosinophils # (Auto) 0.2 Basophils # (Auto) 0.0 CBC Comment Sodium Level 141 Potassium Level 4.5 Chloride Level 108 H Carbon Dioxide Level 25.2 Anion Gap 8 Blood Urea Nitrogen 12 Creatinine 1.25 H Estimated GFR/1.73 m2 63 BUN/Creatinine Ratio 9.6 L Glucose Level 110 H Calcium Level 8.0 L Magnesium Level 2.0 Troponin I High Sensitivity 18 24 26 Pro-B-Type Natriuretic Peptide 83 Albumin 3.4 Chemistry Comments Troponin I High Sens Percent Delta 33 8 Troponin I Hi Sens Absolute Change 6 2 Triglycerides Level 398 H Cholesterol Level 166 LDL Cholesterol 114 H HDL Cholesterol 22 L Cholesterol/HDL Ratio 7.5 H Medical Decision Making Additional information obtaine: old records Findings During the physical examination, the findings suggestive of acute life- threatening condition such as JVD, tracheal deviation, acidotic breathing, noisy stridorous breath sounds, pulses paradoxus, muffled heart sounds, unequal breath sounds, abdominal rigidity and rebound tenderness, focal neurological deficits, cool clammy skin, severe hypotension, severe tachycardia or bradycardia are absent. Patient has significant tachy dysrhythmia which is atrial fibrillation but his blood pressure is maintained. His CBC shows WBC 8.9 and H and H19.2 and 57.5 with platelets 234. The patient is nonsmoker and his H&H is indicative or polycythemia. I found out that patient has been using testosterone and some OTC steroid. His heart rate came down to 75 /min after a dose of cardizem 26 mg ( 0.25 mg/KG). I have spoken to the patient and his about treatment plan and we came to shared decision making that he will be discharged upon cardizem CD 180 mg and digoxin 125 microgram together with Eliquis 5 mg BID and follow up with cardiology . DISCLAIMER Inadvertent spelling and grammatical errors,inadvertent gas usage meter clerk errors,syntax errors, grammatical errors, and spelling errors are likely due to EMR/dictation software use and do not reflect on the overall quality of patient care. Note that the electronic time recorded on this note does not necessarily reflect the actual time of the patient encounter. Differential Dx:Considerations: Include: angina / ME, atrial fibrillation, atrial flutter, PSVT, sinus tachycardia Differential Dx:Considerations: Include electrolyte disorder, Include hyperthyroidism Departure Impression: Primary Impression: New onset atrial fibrillation Additional Impressions: Secondary polycythemia Dyslipidemia (high LDL; low HDL) Condition: Stable Discharge Instructions: Atrial Fibrillation, [id number] Referrals: NO PRIMARY CARE PROVIDER (PCP) Prescriptions Atorvastatin Calcium (Atorvastatin Calcium) 20 Mg Tablet 1 TAB PO DAILY for 30 Days, #30 TAB 0 Refills Prov: DANIEL PIÑA MD 08/12/25 Apixaban (ELIQUIS) 5 Mg Tablet 1 TAB PO Q12H for 30 Days, #60 TAB 0 Refills Prov: DANIEL PIÑA MD 08/12/25 Digoxin* (Lanoxin*) 125 Mcg Tablet 1 TAB PO DAILY for 30 Days, #30 TAB Prov: DANIEL PIÑA MD 08/12/25 Diltiazem HCl (Diltiazem 24Hr Cd) 180 Mg Cap.er.24h 1 CAP PO DAILY for 30 Days, #30 CAP 0 Refills Prov: DANIEL PIÑA MD 08/12/25 Signature Scribe Signature: x Attestation: x DANIEL PIÑA MD Aug 12, 2025 13:49
[2025-08-12 14:27] LABS: CHOL/HDL RATIO 7.5 (0.00-4.99); LDL CHOLESTEROL 114 MG/DL (50-100)
[2025-08-12] MEDS ORDERED: APIX5TAB3 PO (14:47)
[2025-08-12] MEDS ORDERED: DIGO125T PO (14:47)
[2025-08-12] MEDS ORDERED: DILT-36 PO (14:47)
[2025-08-12] MEDS: diltiazem CD 180mg cap (once-daily) PO ONE (14:56)
[2025-08-12] MEDS ORDERED: ATOR20TA66 PO (15:17)
[2025-08-12 15:38] VITALS: BP 140/99; PULSE 96; RESP 21; TEMP 98.6; O2SAT 97
--- NOTE | 2025-08-12 17:02 | ELECTROCARDIOGRAPH REPORT ---
[facility] Test Date: 2025-08-12 Test Time: 13:19:11 Pat Name: DEEDEE YUEN Department: EMERGENCY ROOM Room: Gender: M Crew Lead: : 1980 Requested By: DEPARTMENT EMERGENCY Order Number: [id number] Reading MD: Dr. Vamshi Gil Measurements Intervals [place] Rate: 75 P: 0 ND: 0 QRS: 8 QRSD: 86 T: 39 QT: 359 QTc: 401 Interpretive Statements Atrial fibrillation Electronically Signed On 08-12-2025 19:08:[address] Vamshi Gil Please click the below link to view image of tracing.
== END 2025-08-12 15:40 | disposition home or self-care (01) ==
LOC: ER 12:40
DX: I48.91 Unspecified atrial fibrillation (principal); D75.1 Secondary polycythemia; E78.5 Hyperlipidemia, unspecified; G47.30 Sleep apnea, unspecified; G89.29 Other chronic pain; F41.9 Anxiety disorder, unspecified; F32.A Depression, unspecified; Z79.899 Other long term (current) drug therapy; Z72.89 Other problems related to lifestyle
CPT/HCPCS: 36415; 71045; 80048; 80061; 82668; 83735; 83880; 84484; 85025; 93005; 96365; 96366; 96375; 99285; J1160; J3475; J3490; J7030

== ENCOUNTER 2025-08-20 09:02 | Outpatient (CLI) | payer BC ==
[~2025-08-20 09:02] MED LIST changes: +APIX5TAB3 PO; +ATOR20TA66 PO; +DIGO125T PO; +DILT-36 PO
--- NOTE | 2025-08-20 17:24 | CARDIOLOGY REPORT ---
APPROVED REPORT EXAM: Comprehensive 2D, Doppler, and color-flow Echocardiogram. Patient Location: OUT-PATIENT Blood Pressure: 157/63 mmHg Heart Rate: 90 bpm Indications Atrial Fibrillation Sleep Apnea Palpitations Chest Discomfort ZOOLOGY TECHNICAL OFFICER: Jenny Harmon MD NO Previous ECHO 2D Dimensions LA Diam 3.8 cm IVSd 1.4 (0.7-1.1cm) LVDd 5.3 cm PWd 1.3 (0.7-1.1cm) IVSs 1.3 (0.8-1.2cm) LVDs 3.8 (2.5-4.0cm) PWs 2.0 (0.8-1.2cm) LVOT Diameter 2.24 (1.8-2.4cm) LVEF(%) 53.6 (>50%) Ao Asc Diam. 2.71 cm IVC 11.51 mm FS (%) 27.9 % SV 71.8 ml CO 6.5 L/min M-Mode Dimensions Left Atrium(MM) 4.22 (2.5-4.0cm) Aortic Root 3.39 (2.2-3.7cm) Aortic Cusp Exc 2.13 (1.5-2.0cm) MV EPSS 1.2 (<0.5cm) Aortic Valve AoV Peak Aguila. 157.8 cm/s AoV VTI 27.3 cm AO Peak GR. 10.0 mmHg AO Mean GR. 6 mmHg LVOT VTI 18.94 cm LVOT Peak Aguila. 109.3 cm/s ALLI(VTI)/BSA 2.74 cm2/m2 ALLI (VTI) 2.74 cm2 AV DI 0.69 % Mitral Valve MV E Velocity 68.2 cm/s MV Peak Gr. 2 mmHg MV DECEL TIME 188 ms MV A Velocity 83.0 cm/s MV PHT 152 ms E/A Ratio 0.8 MVA (PHT) 1.45 cm2 MV VMax 67.3 cm/s TDI Lateral E' P. V 11.05 cm/s E/Lateral E' 6.2 Tricuspid Valve TR P. Velocity 149 cm/s RAP ESTIMATE 10 mmHg TR Peak Gr. 9 mmHg RVSP 19 mmHg LEFT VENTRICLE Normal LV size and function. Mild concentric hypertrophy. Overall LVEF is 55%. RIGHT VENTRICLE Right ventricle is grossly normal in size and function. ATRIA Left atrium is mildly dilated. AORTIC VALVE Trileaflet AV appears mildly sclerotic without stenosis. No insufficiency. MITRAL VALVE Mitral valve leaflets are mildly thickened with mild annular calcification. No stenosis. Trace regurgitation. TRICUSPID VALVE The tricuspid valve is normal in structure with trace regurgitation. PULMONIC VALVE The pulmonary valve is normal in structure with physiologic insufficiency. GREAT VESSELS The aortic root is normal in size. The ascending aorta is normal in size. The IVC is normal in size and collapses >50% with inspiration. PERICARDIUM Normal pericardium. No effusion. Other Information Study Quality: Adequate Conclusion Overall LVEF is 55%. Normal LV size and function. Mild concentric hypertrophy. Right ventricle is grossly normal in size and function. Trileaflet AV appears mildly sclerotic without stenosis. No insufficiency. Mitral valve leaflets are mildly thickened with mild annular calcification. No stenosis. Trace regurgitation. The tricuspid valve is normal in structure with trace regurgitation. The pulmonary valve is normal in structure with physiologic insufficiency. Normal pericardium. No effusion.
== END 2025-08-20 23:59 | disposition home or self-care (01) ==
LOC: CARD DIAG 09:02
PROVIDERS: ATTEND Student in an Organized Health Care Education/Training Program
DX: I08.8 Other rheumatic multiple valve diseases (principal); I48.91 Unspecified atrial fibrillation
CPT/HCPCS: 36415; 84436; 84443; 93306